=== PATIENT | male | born 1970 | race Caucasian/White ===

== ENCOUNTER 2016-11-05 15:30 | Outpatient (RCR) | payer OTHER | END 2016-11-12 14:24 | disposition home or self-care (01) | LOC: WSPT 15:30 | DX: M76.821 Posterior tibial tendinitis, right leg (principal) ==

== ENCOUNTER → 2017-12-22 | Outpatient (CLI) | payer BC | LOC: COL.LAB 08:33 | DX: I82.4Z1 Acute embolism and thrombosis of unspecified deep veins of right distal lower extremity (principal); D16.21 Benign neoplasm of long bones of right lower limb ==

== ENCOUNTER → 2018-04-13 | Outpatient (CLI) | payer BC | LOC: COL.VAS 07:57 | DX: I82.401 Acute embolism and thrombosis of unspecified deep veins of right lower extremity (principal) ==

== ENCOUNTER → 2019-03-03 | Outpatient (CLI) | payer BC | LOC: ZCOL.LAB 10:56 | DX: R22.40 Localized swelling, mass and lump, unspecified lower limb (principal) ==

== ENCOUNTER → 2019-03-03 | Outpatient (CLI) | payer BC | LOC: COL.VAS 11:15 | DX: I82.812 Embolism and thrombosis of superficial veins of left lower extremity (principal) ==

== ENCOUNTER → 2021-02-06 | Outpatient (CLI) | payer BC | LOC: COL.RAD 06:49 | DX: E07.89 Other specified disorders of thyroid (principal); E05.90 Thyrotoxicosis, unspecified without thyrotoxic crisis or storm ==